=== PATIENT | male | born 1970 | race Caucasian/White ===

== ENCOUNTER 2016-10-25 01:42 | Emergency (ER) | payer MEDICAID ==
[~2016-10-25] VITALS: Ht 175.3 cm; Wt 95.0 kg
[2016-10-25] MEDS ORDERED: QUET100T4 PO (01:52)
[2016-10-25] MEDS ORDERED: BUPR100T11 PO (01:52)
[2016-10-25] MEDS ORDERED: AMLO10TA2 PO (01:52)
[2016-10-25] MEDS ORDERED: AMLODIPINE 5 MG TABLET PO ONE (02:00)
[2016-10-25 02:57] VITALS: BP 152/94
== END 2016-10-25 02:59 | disposition home or self-care (01) ==
LOC: ED 02:29
DX: S02.2XXA Fracture of nasal bones, initial encounter for closed fracture (principal); S09.90XA Unspecified injury of head, initial encounter; I10 Essential (primary) hypertension; F31.9 Bipolar disorder, unspecified; Y04.0XXA Assault by unarmed brawl or fight, initial encounter; Y93.89 Activity, other specified; Y09 Assault by unspecified means; Y92.410 Unspecified street and highway as the place of occurrence of the external cause
CPT/HCPCS: 99283